=== PATIENT | female | born 2000 | race Caucasian/White ===

== ENCOUNTER 2021-07-23 13:21 | Emergency (ER) | payer OTHER ==
[~2021-07-23] VITALS: Ht 157.5 cm; Wt 72.5 kg
[~2021-07-23 13:21] MED LIST: NOCURR
[2021-07-23 15:15] VITALS: BP 111/65
== END 2021-07-23 15:48 | disposition home or self-care (01) ==
LOC: EMS 13:49
DX: F41.9 Anxiety disorder, unspecified (principal); R07.89 Other chest pain; R06.02 Shortness of breath; R42 Dizziness and giddiness
CPT/HCPCS: 99281; 99283

== ENCOUNTER 2023-08-13 14:13 | Emergency (ER) | payer OTHER ==
[~2023-08-13] VITALS: Ht 157.5 cm; Wt 56.8 kg
[2023-08-13 14:23] VITALS: TEMP 98.1
[2023-08-13 15:35] VITALS: BP 113/72; PULSE 81; RESP 16
== END 2023-08-13 15:38 | disposition home or self-care (01) ==
LOC: EMS 14:27
DX: T78.1XXA Other adverse food reactions, not elsewhere classified, initial encounter (principal); F41.9 Anxiety disorder, unspecified; Z91.012 Allergy to eggs
CPT/HCPCS: 99282; Z7502